=== PATIENT | male | born 2000 | race Caucasian/White ===

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

== ENCOUNTER 2021-02-06 21:33 | Inpatient (IN) ==
[2021-02-06 22:19] LABS: ABS Lymphocytes 1.9 10^3/ul (1.0-4.8); ABS Monocytes 0.8 10^3/ul (0-0.8); ABS Neutrophils 7.2 10^3/ul (1.5-7.7); Eosinophil % 0.5 %; Hematocrit 47 % (42-52); Hemoglobin 16.3 g/dL (14.0-18.0); Lymphocyte % 19.3 %; Mean Corpuscular HGB Conc 35 g/dL (31-36); Mean Corpuscular Hemoglobin 33 pg (27-31); Mean Corpuscular Volume 95 fL (80-94); Mean Platelet Volume 8.2 fL (7.4-10.4); Platelet Count 290 10^3/uL (150-450); Red Blood Count 4.92 10^6 /uL (4.18-5.48); Red Cell Distribution Width 12 % (10-15); White Blood Count 10.1 10^3/uL (3.5-10.8)
[2021-02-06 22:33] LABS: ALT 19 U/L (7-52); Albumin/Globulin Ratio 1.9 (1-3); Alkaline Phosphatase 72 U/L (34-104); Blood Urea Nitrogen 15 mg/dL (6-24); CO2 Carbon Dioxide 26 mmol/L (22-32); Calcium 9.6 mg/dL (8.6-10.3); Chloride 101 mmol/L (101-111); EGFR African American 103.3 (>60); EGFR Non-African American 85.3 (>60); Globulin 2.7 g/dL (2-4); Glucose 94 mg/dL (70-100); Sodium 137 mmol/L (135-145); Total Protein 7.7 g/dL (6.4-8.9)
[2021-02-06 22:52] LABS: Urine Appearance Clear; Urine Bilirubin Negative (Negative); Urine Blood Negative (Negative); Urine Color Yellow; Urine Glucose Negative (Negative); Urine Ketones Negative (Negative); Urine Nitrite Negative (Negative); Urine Protein Negative (Negative); Urine Specific Gravity 1.016 (1.002-1.030); Urine Urobilinogen Negative (Negative)
[2021-02-06 22:58] LABS: Urine Benzodiazepine Screen None Detected (None Detect); Urine Cannabinoids Screen None Detected (None Detect); Urine Opiates Screen None Detected (None Detect)
[2021-02-06 23:30] LABS: Acetaminophen < 15 mcg/mL; Alcohol, S < 10 mg/dL (<10); Salicylate < 2.50 mg/dL (<30)
[2021-02-06 23:39] LABS: Anion Gap 10 mmol/L (2-11); Potassium 3.5 mmol/L (3.5-5.0)
[2021-02-06 23:40] LABS: AST 21 U/L (13-39)
[2021-02-07 01:28] LABS: TSH Ultra Thyroid Stim Horm 3.26 mcIU/mL (0.34-5.60)
[2021-02-07] MEDS ORDERED: Al Hydrox/Mg Hydrox/Simet LIQ 30 ML UDC PO PRN (13:36)
[2021-02-08] MEDS: Vitamin THERAPEUTIC TAB PO SCH (09:29)
[2021-02-09] MEDS: Vitamin THERAPEUTIC TAB PO SCH (08:43)
[2021-02-10] MEDS: Vitamin THERAPEUTIC TAB PO SCH (08:44)
[2021-02-11] MEDS: Vitamin THERAPEUTIC TAB PO SCH (08:58)
[2021-02-12] MEDS: Vitamin THERAPEUTIC TAB PO SCH (08:34)
[2021-02-13] MEDS: Vitamin THERAPEUTIC TAB PO SCH (10:50)
[2021-02-14] MEDS: Vitamin THERAPEUTIC TAB PO SCH (11:22)
[2021-02-15] MEDS: Vitamin THERAPEUTIC TAB PO SCH (09:56)
[2021-02-16 07:51] VITALS: BP 105/59
[2021-02-16] MEDS: Vitamin THERAPEUTIC TAB PO SCH (09:30)
== END 2021-02-16 15:50 | disposition home or self-care (01) | DRG 885 ==
LOC: ED 21:33 → BSU 02-07 06:57
PROVIDERS: ADMIT Psychiatry & Neurology Psychiatry; ATTEND Psychiatry & Neurology Psychiatry